=== PATIENT | female | born 1960 | race Caucasian/White ===

== ENCOUNTER 2020-11-12 14:59 | Emergency (ER) | payer OTHER ==
[~2020-11-12] VITALS: Ht 160 cm; Wt 61.2 kg
[~2020-11-12 14:59] MED LIST: (None)20 M1 PO; ALBU90OI61; CEPH500 PO; Cipro500 MG PO; FLUSAL2505; HYDACE5 PO; PENVK500 PO; PRED5; PROACE100; PROACE100 PO; PROM25; Pepcid20 MG PO; RXSULTRIDS; SULTRIDS PO; TRAZ50; Vistaril25 MG PO
== END 2020-11-12 16:08 | disposition home or self-care (01) ==
LOC: ER 14:59
DX: S90.32XA Contusion of left foot, initial encounter (principal); J44.9 Chronic obstructive pulmonary disease, unspecified; F17.210 Nicotine dependence, cigarettes, uncomplicated; W20.8XXA Other cause of strike by thrown, projected or falling object, initial encounter
CPT/HCPCS: 73630; 99283-25

== ENCOUNTER 2020-12-18 20:59 | Emergency (ER) | payer OTHER | END 2020-12-18 22:23 | disposition left against medical advice (07) | LOC: ER 20:59 | DX: Z53.21 Procedure and treatment not carried out due to patient leaving prior to being seen by health care provider (principal) ==